=== PATIENT | female | born 1930 | race Caucasian/White ===

== ENCOUNTER → 2016-09-30 | Outpatient (REF) | LOC: ZLAB.WCH 12:31 | DX: Z01.89 Encounter for other specified special examinations (principal) ==

== ENCOUNTER → 2016-10-15 | Outpatient (REF) | LOC: ZLAB.WCH 14:59 | DX: Z01.89 Encounter for other specified special examinations (principal) ==

== ENCOUNTER → 2016-10-29 | Outpatient (REF) | LOC: ZLAB.WCH 10:30 | DX: Z01.89 Encounter for other specified special examinations (principal) ==

== ENCOUNTER → 2016-11-01 | Outpatient (REF) | LOC: ZLAB.WCH 10:31 | DX: Z01.89 Encounter for other specified special examinations (principal) ==

== ENCOUNTER → 2016-11-05 | Outpatient (REF) | LOC: ZLAB.WCH 10:49 | DX: Z01.89 Encounter for other specified special examinations (principal) ==

== ENCOUNTER → 2018-06-12 | Outpatient (REF) | LOC: ZLAB.WCH 18:14 | DX: Z01.89 Encounter for other specified special examinations (principal) ==

== ENCOUNTER → 2020-09-12 | Outpatient (REF) | LOC: ZLAB.WCH 21:25 | DX: Z01.89 Encounter for other specified special examinations (principal) ==